=== PATIENT | male | born 1980 | race Hispanic/Latino ===

== ENCOUNTER 2017-09-26 04:16 | Emergency (ER) | payer OTHER ==
[2017-09-26 04:27] VITALS: RESP 20; O2SAT 96
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
[2017-09-26 05:21] VITALS: BP 130/64; PULSE 92; TEMP 97.8
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
== END 2017-09-26 05:21 | disposition home or self-care (01) ==
LOC: C.ER 04:16
DX: S46.912A Strain of unspecified muscle, fascia and tendon at shoulder and upper arm level, left arm, initial encounter (principal); W19.XXXA Unspecified fall, initial encounter; L73.9 Follicular disorder, unspecified
CPT/HCPCS: 73030; 96372; 99284; J1885